=== PATIENT | female | born 1985 | race Caucasian/White ===

== ENCOUNTER 2016-05-05 13:17 | Emergency (ER) | payer MEDICAID ==
[2015-09-21 12:54] VITALS: BMI 40.5
[~2016-05-05 13:17] MED LIST: FLAGYL500 MG PO; IBUPROFEN600 MG PO; PERCOCET 5-3251 TAB PO; PRENATAL COMPLE1 TAB PO; PROTONIX20 MG PO
== END 2016-05-05 14:55 | disposition left against medical advice (07) ==
LOC: D.ER 13:17
DX: J02.9 Acute pharyngitis, unspecified (principal)

== ENCOUNTER 2019-04-25 13:03 | Emergency (ER) | payer MEDICAID ==
[~2019-04-25] VITALS: Ht 157.5 cm; Wt 84.1 kg
[2019-04-25 13:14] VITALS: Ht 157.5 cm; Wt 84.1 kg
[2019-04-25] MEDS ORDERED: STERAPRED DS 1010 MG PO (14:02)
[2019-04-25] MEDS ORDERED: ROBITUSSIN DM 110 ML PO (14:02)
[2019-04-25] MEDS ORDERED: ZPAK PO (14:02)
--- NOTE | 2019-04-25 14:17 | NUR ---
DR. NGUYỄN NOTIFIED AND SITTER ORDERED. SITTER AT BEDSIDE. NOTIFIED CHARGE NURSE AND ATTENDING IN REGARDS TO ASSESSMENT FINDINGS. RESOURCES GIVEN TO PT. AND SAFETY PLAN INITIATED.
[2019-04-25 14:39] LABS: BASOPHILS 0.2 % (0-2); EOSINOPHILS 0.1 % (0-7); HEMATOCRIT 34.6 % (36.0-48.0); HEMOGLOBIN 11.5 g/dL (12-16); IMMATURE GRANULOCYTES 0.2 % (0-5); LYMPHOCYTES 25.6 % (15-50); MCH 29.9 pg (26.0-34.0); MCHC 33.2 g/dL (31.0-37.0); MCV 89.9 fL (80.0-100.0); MEAN PLATELET VOLUME 9.3 fL (7.4-10.4); MONOCYTES 5.8 % (2-11); NEUTROPHILS 68.1 % (40-80); RBC 3.85 10x6/uL (4.00-5.40); RDW 14.3 % (11.5-14.5); WBC 9.6 10x3/uL (4.8-10.8)
[2019-04-25 14:43] LABS: PLATELET COUNT 373 10x3/uL (130-400)
[2019-04-25 15:18] LABS: BILIRUBIN NEGATIVE (NEGATIVE); GLUCOSE NEGATIVE (NEGATIVE); KETONE NEGATIVE (NEGATIVE); NITRITE NEGATIVE (NEGATIVE); UROBILINOGEN NORMAL (NORMAL)
[2019-04-25 15:21] LABS: UDS - AMPHET POSITIVE QUAL (NEGATIVE); UDS - BARB NEGATIVE QUAL (NEGATIVE); UDS - BENZO NEGATIVE QUAL (NEGATIVE); UDS - COCAINE NEGATIVE QUAL (NEGATIVE); UDS - OPIATE NEGATIVE QUAL (NEGATIVE); UDS - PCP NEGATIVE QUAL (NEGATIVE); UDS - THC NEGATIVE QUAL (NEGATIVE)
[2019-04-25 15:22] LABS: ANION GAP 12.8 mmol/L (8-16); CALCIUM 9.3 mg/dL (8.5-10.1); CARBON DIOXIDE 25.9 mmol/L (21.0-32.0); POTASSIUM - SERUM 3.7 mmol/L (3.5-5.1)
[2019-04-25 15:35] LABS: BILIRUBIN - TOTAL 0.15 mg/dL (0.2-1.3); MAGNESIUM - SERUM 2.3 mg/dL (1.8-2.4); PROTEIN - SERUM 7.7 g/dL (6.4-8.2); THYROID STIMULATING HORMONE 0.19 uIU/mL (0.36-3.74)
[2019-04-25] MEDS ORDERED: BUSPAR5 MG PO (16:09)
[2019-04-25] MEDS ORDERED: NALTREXONE HCL50 MG PO (16:09)
[2019-04-25] MEDS ORDERED: BUPROPION HCL100 MG PO (16:09)
[2019-04-25] MEDS ORDERED: CELEXA10 MG PO (16:09)
[2019-04-25] MEDS ORDERED: ULTRAM50 MG PO (16:10)
[2019-04-25 17:23] LABS: HCG URINE NEGATIVE (NEGATIVE)
[2019-04-25 22:03] VITALS: BP 132/89
== END 2019-04-25 22:04 ==
LOC: D.ER 13:03
PROVIDERS: Family Medicine
DX: R45.851 Suicidal ideations (principal); J06.9 Acute upper respiratory infection, unspecified; K21.9 Gastro-esophageal reflux disease without esophagitis; Z72.0 Tobacco use